=== PATIENT | female | born 1945 | race Caucasian/White ===

== ENCOUNTER 2017-04-10 11:41 | Emergency (ER) | payer OTHER, MEDICARE ==
[2017-04-10 11:52] VITALS: RESP 18
--- NOTE | 2017-04-10 12:53 | EDPHY ---
H & P Stated Complaint: Object fel on pt's head;no LOC,no neck pain;wants to "get checked" Time Seen by Provider: 04/10/17 12:33 - Personal History Current Tetanus Diphtheria and Acellular Pertussis (TDAP): Yes - Medical/Surgical History Other PMH: APAP. sleep apnea - Social History Smoking Status: Never smoked Constitutional: Initial Vital Signs Temperature (C) 36.6 C 04/10/17 11:47 Heart Rate 85 04/10/17 11:47 Respiratory Rate 18 04/10/17 11:47 Blood Pressure 145/76 H 04/10/17 11:47 O2 Sat (%) 96 04/10/17 11:47 O2 Delivery Mode Room Air Allergies/Adverse Reactions: Penicillins Allergy (Mild, Verified 04/10/17 11:47) hands itch Home Medications: Medication Instructions Recorded NK [No Known Home Meds] 04/10/17 Medical Decision Making ED Course/Re-evaluation: CHIEF COMPLAINT: Head injury HISTORY OF PRESENT ILLNESS: The patient is a 72 y/o female complaining of left- sided scalp pain from an injury this afternoon. She was reorganizing her storage unit and a piece of exercise equipment fell on the left side of her head. She did not lose consciousness and remembers the entire incident. She drove herself to the ED for evaluation. She denies weakness, paresthesias, lacerations, abrasions, or other injuries. She does not use any anticoagulants. REVIEW OF SYSTEMS: A 10 point review of systems was performed and is negative with the exception of the elements mentioned in the history of present illness. PHYSICAL EXAM: HR, BP, O2 Sat, RR. Temp noted General Appearance: Alert, well hydrated, appropriate, and non-toxic appearing. Head: Small hematoma left parietal scalp Eyes: Pupils equal, round, reactive to light and accommodation, EOMI, no trauma , no injection. Ears: Left earlobe mildly erythematous. Clear bilaterally, no perforation, normal landmarks Nose: Atraumatic, no rhinorrhea, clear. Throat: Mucus membranes moist. Neck: Supple, nontender, no lymphadenopathy. Respiratory: No retractions, no distress, no wheezes, and no accessory muscle use. Lungs are clear to auscultation bilaterally. Cardiovascular: Regular rate and rhythm, no murmurs, rubs, or gallops. Good capillary refill all extremities. Gastrointestinal: Abdomen is soft, nontender, non-distended, no masses, no rebound, no guarding, no peritoneal signs. Musculoskeletal: Normal active ROM of all extremities, atraumatic. Neurological: Alert, appropriate, and interactive. The patient has non-focal cranial nerves, motor, sensory, and cerebellar exam. Skin: No rashes, good turgor, no nodules on palpation. Past medical history: Hearing loss, CPAP use Past surgical history: noncontributory Family history: Noncontributory Social history: Employed. Lives in [place]. Single DIFFERENTIAL DIAGNOSIS: The differential diagnosis for the patient's head injury included but was not limited to contusion, hematoma, concussion, skull fracture, intra-parenchymal contusion, subarachnoid, subdural and epidural hematoma. MEDICAL DECISION MAKING: This is a healthy 72 y/o female who presents with a left parietal hematoma after a piece of exercise equipment fell and struck her scalp this afternoon. She is neurovascularly intact and has no other trauma on exam. She did not lose consciousness and does not have amnesia around the event. She does not meet criteria for imaging. She will be discharged with standard hematoma care and follow up instructions. Head injury return precautions discussed. She agrees with plan for discharge. Departure - Departure Disposition: Home, Routine, Self-Care Clinical Impression: Scalp hematoma Qualifiers: Encounter type: initial encounter Qualified Code(s): S00.03XA - Contusion of scalp, initial encounter Condition: Good Instructions: Hematoma (ED) Additional Instructions: 1. Take Tylenol or ibuprofen as directed on the packaging as needed for pain over the next few days. 2. Apply ice intermittently to sore areas over the next 24-48 hours. 3. Follow up with your primary care provider for any unimproved symptoms over the weekend. 4. Return to the ED for severe pain, weakness or numbness on one side of your body, or other worsening of condition. Referrals: Valerie Mendoza MD [Primary Care Provider] - As per Instructions Report Scribed for: Jb Nunes Report Scribed by: Darcie Charles Date of Report: 04/10/17 Time of Report: 12:54
[2017-04-10 13:13] VITALS: BP 154/80; PULSE 79; TEMP 98.1; O2SAT 94
== END 2017-04-10 13:13 | disposition home or self-care (01) ==
DX: S00.03XA Contusion of scalp, initial encounter (principal); W20.8XXA Other cause of strike by thrown, projected or falling object, initial encounter

== ENCOUNTER → 2017-10-08 | Outpatient (CLI) | payer OTHER, MEDICARE | LOC: FIMAGING 11:40 | DX: M51.34 Other intervertebral disc degeneration, thoracic region (principal); S46.912A Strain of unspecified muscle, fascia and tendon at shoulder and upper arm level, left arm, initial encounter; M75.92 Shoulder lesion, unspecified, left shoulder ==

== ENCOUNTER 2018-02-18 21:34 | Emergency (ER) | payer OTHER, MEDICARE ==
[2018-02-18 21:45] VITALS: BP 166/74
--- NOTE | 2018-02-18 22:18 | EDPHY ---
H & P Stated Complaint: MAY HAVE SWALLOWED SOME GLASS Time Seen by Provider: 02/18/18 21:53 HPI/ROS: Chief Complaint: May have swallowed glass HPI: 73-year-old woman presenting with concerns that she may have sold a piece of glass. She was at a restaurant about 5 hr ago and took a drink from a water glass. She then felt a sharp edge on her lip when swallowing. She ran her finger across the glass and noted a broken area and also broke off another piece of glass. She is concerned that she may have swallowed a piece of glass. She called and spoke with primary care physician's office who told her to come the emergency department because she might require and endoscopy. She denies throat pain. She denies abdominal pain. No chest pain or shortness of breath. No nausea or vomiting. ROS: 10 systems were reviewed and were negative except those elements noted in the HPI. Social History: No smoking, no alcohol, no recreational drug use Family History: non-contributory Physical Exam: Gen: Awake, Alert, No Distress HEENT: Nose: no rhinorrhea Eyes: PERRLA, EOMI Mouth: Moist mucosa Neck: Supple, no JVD Chest: nontender, lungs clear to auscultation Heart: S1, S2 normal, no murmur Abd: Soft, non-tender, no guarding Back: no CVA tenderness, no midline tenderness Ext: no edema, non-tender Skin: no rash Neuro: CN II-XII intact, Sensation grossly intact, Strength 5/5 in bilateral upper and lower extremities - Personal History Current Tetanus/Diphtheria Vaccine: Yes Current Tetanus Diphtheria and Acellular Pertussis (TDAP): Yes - Medical/Surgical History Hx Asthma: No Hx Chronic Respiratory Disease: No Hx Diabetes: No Hx Cardiac Disease: No Hx Renal Disease: No Hx Cirrhosis: No Hx Alcoholism: No Hx HIV/AIDS: No Hx Splenectomy or Spleen Trauma: No Other PMH: APAP , BACK ISSUES, KNEE SURGERY, BILAT MASSECTOMY. sleep apnea - Social History Smoking Status: Never smoked Constitutional: Initial Vital Signs Temperature (C) 36.5 C 02/18/18 21:41 Heart Rate 88 02/18/18 21:41 Respiratory Rate 16 02/18/18 21:41 Blood Pressure 166/74 H 02/18/18 21:41 O2 Sat (%) 96 02/18/18 21:41 O2 Delivery Mode Room Air Allergies/Adverse Reactions: Penicillins Allergy (Mild, Verified 04/10/17 11:47) hands itch azithromycin Allergy (Verified 02/18/18 21:45) bethanechol [From Urecholine] Allergy (Verified 02/18/18 21:45) Home Medications: Medication Instructions Recorded Crisaborole [Eucrisa] 60 gm TP 02/18/18 Ergocalciferol (Vitamin D2) 2,000 unit PO 02/18/18 [Vitamin D2] Medical Decision Making - Diagnostics Imaging Results: Imaging Impressions Abdomen X-Ray 02/18/18 22:15 Impression: No discernible ingested glass. ED Course/Re-evaluation: Abdominal x-ray is negative. Patient has a soft benign abdomen. She has been reassured that she was should be able to pass any ingested glass without any difficulties. She has been instructed to follow up with primary care physician or return to the emergency department for worsening abdominal pain, blood in her stool, or any other concerns. I anticipate she will not have any difficulty. Departure - Departure Disposition: Home, Routine, Self-Care Clinical Impression: Foreign body ingestion Condition: Good Instructions: Foreign Body Ingestion (ED) Additional Instructions: Follow up with primary care physician in 3-4 days for further evaluation. Return to the emergency department for increasing abdominal pain, nausea vomiting, copious blood per rectum, or any other concerns. Referrals: Valerie Mendoza MD [Primary Care Provider] - As per Instructions
== END 2018-02-18 23:11 | disposition home or self-care (01) ==
DX: T18.9XXA Foreign body of alimentary tract, part unspecified, initial encounter (principal)

== ENCOUNTER → 2018-02-22 | Outpatient (CLI) | payer OTHER, MEDICARE | LOC: FIMAGING 18:09 | PROVIDERS: ATTEND Orthopaedic Surgery | DX: M75.122 Complete rotator cuff tear or rupture of left shoulder, not specified as traumatic (principal) ==